=== PATIENT | female | born 1995 | race Caucasian/White ===

== ENCOUNTER 2017-08-10 18:17 | Emergency (ER) | payer OTHER ==
[~2017-08-10] VITALS: Ht 165.1 cm; Wt 77.0 kg
[2017-08-10 18:21] VITALS: BP 124/65
[2017-08-10] MEDS ORDERED: KETOROLAC 30 MG/1 ML IM ONE (19:30)
[2017-08-10] MEDS ORDERED: METHOCARBAMOL 750 MG TABLET PO ONE (19:30)
[2017-08-10 19:37] LABS: HCG UR OBC PASS
[2017-08-10] MEDS ORDERED: KETOROLAC 30 MG/1 ML ONE (19:54)
[2017-08-10] MEDS ORDERED: METHOCARBAMOL 750 MG TABLET ONE (19:54)
== END 2017-08-10 20:27 | disposition home or self-care (01) ==
LOC: ED 20:26
DX: S39.012A Strain of muscle, fascia and tendon of lower back, initial encounter (principal); X58.XXXA Exposure to other specified factors, initial encounter; Y93.89 Activity, other specified; Y92.89 Other specified places as the place of occurrence of the external cause; Y99.8 Other external cause status
CPT/HCPCS: 72110; 81001; 81025; 87086; 96372; 99285; J1885